=== PATIENT | male | born 1985 | race Caucasian/White ===

== ENCOUNTER 2021-06-19 03:25 | Emergency (ER) | payer BC | END 2021-06-19 04:04 | disposition home or self-care (01) | LOC: CSHERS 03:25 | DX: H65.91 Unspecified nonsuppurative otitis media, right ear (principal); M25.561 Pain in right knee | CPT/HCPCS: 99283 ==

== ENCOUNTER 2021-07-04 05:20 | Emergency (ER) | payer OTHER, BC ==
[2021-07-04] MEDS ORDERED: Rabies Vaccine Human 2.5 UNITS VIAL IM ONE (05:45)
== END 2021-07-04 06:26 | disposition home or self-care (01) ==
LOC: CSHERS 05:20
DX: S61.451A Open bite of right hand, initial encounter (principal); S50.811A Abrasion of right forearm, initial encounter; G25.81 Restless legs syndrome; Z23 Encounter for immunization; W54.0XXA Bitten by dog, initial encounter
CPT/HCPCS: 90375; 90471; 90675; 96372

== ENCOUNTER → 2021-07-07 | Day surgery (SDC) | payer BC ==
[~2021-07-07] MED LIST: Rabies Vaccine Human 2.5 UNITS VIAL ONE
== END ==
LOC: CSHER/OP 04:40 → CSHERS 04:40 → EDSTATUS 05:21
PROVIDERS: ATTEND Student in an Organized Health Care Education/Training Program
DX: Z29.14 Encounter for prophylactic rabies immune globulin (principal)
CPT/HCPCS: 90471; 90675

== ENCOUNTER 2021-07-11 23:14 | Emergency (ER) | payer BC, OTHER | END 2021-07-11 23:39 | disposition home or self-care (01) | LOC: CSHER/OP 23:14 | DX: Z23 Encounter for immunization (principal) | CPT/HCPCS: 90471 ==

== ENCOUNTER → 2021-07-18 | Day surgery (SDC) | payer BC | LOC: CSHER/OP 07:08 → EDSTATUS 09:37 | PROVIDERS: ATTEND Emergency Medicine | DX: Z29.14 Encounter for prophylactic rabies immune globulin (principal) | CPT/HCPCS: 90471; 90675 ==

== ENCOUNTER → 2021-08-02 | Day surgery (SDC) | payer BC | LOC: CSHER/OP 02:53 | PROVIDERS: ATTEND Emergency Medicine | DX: Z29.14 Encounter for prophylactic rabies immune globulin (principal) | CPT/HCPCS: 90471; 90675 ==

== ENCOUNTER 2022-01-27 19:15 | Emergency (ER) | payer BC | END 2022-01-28 00:31 | disposition home or self-care (01) | LOC: CSHERS 19:15 | DX: R40.0 Somnolence (principal) | CPT/HCPCS: 99284 ==

== ENCOUNTER 2022-02-08 02:17 | Emergency (ER) | payer BC ==
[2022-02-08] MEDS ORDERED: Bacitracin 1 PK ONE (03:29)
== END 2022-02-08 04:07 | disposition home or self-care (01) ==
LOC: CSHERS 02:17
DX: S61.227A Laceration with foreign body of left little finger without damage to nail, initial encounter (principal); S61.225A Laceration with foreign body of left ring finger without damage to nail, initial encounter; F17.290 Nicotine dependence, other tobacco product, uncomplicated; W25.XXXA Contact with sharp glass, initial encounter
CPT/HCPCS: 12002